=== PATIENT | male | born 1985 | race Two or more races ===

== ENCOUNTER → 2019-10-28 | Emergency (ER) | payer MEDICAID, OTHER ==
[~2019-10-28] VITALS: Ht 167.6 cm; Wt 63.0 kg
[2019-10-28 21:10] VITALS: BP 130/70
== END | disposition home or self-care (01) ==
LOC: ER 20:54
DX: S00.81XA Abrasion of other part of head, initial encounter (principal); X58.XXXA Exposure to other specified factors, initial encounter; Y93.89 Activity, other specified; Y92.89 Other specified places as the place of occurrence of the external cause; Y99.8 Other external cause status